=== PATIENT | male | born 1950 | race Caucasian/White ===

== ENCOUNTER 2023-09-22 12:59 | Inpatient (IN) | payer OTHER ==
[2023-09-22 13:26] LABS: Absolute Lymphocytes (CBC) 1.4 K/uL (0.7-4.9); Lymphocytes % 16.1 % (15.3-44.8); MPV 8.4 fL (7.6-11.3); Platelets 205 thou/uL (152-406)
--- NOTE | 2023-09-22 13:31 | RAD REPORT ---
EXAM DESCRIPTION: CT - Head Brain Wo Cont - 09/22/2023 1:20 pm CLINICAL HISTORY: SYNCOPE Headache, drowsiness, syncope COMPARISON: No comparisons TECHNIQUE: All CT scans are performed using dose optimization technique as appropriate and may inclu de automated exposure control or mA/KV adjustment according to patient size. FINDINGS: No intracranial hemorrhage, hydrocephalus or extra-axial fluid collection.Moderate general ized brain atrophy.No areas of brain edema or evidence of midline shift. The paranasal sinuses and mastoids are clear. The calvarium is intact. IMPRESSION: No acute intracranial abnormality.
[2023-09-22 13:36] LABS: Protime INR 0.97
[2023-09-22 13:46] LABS: Albumin 3.9 g/dL (3.4-5.0); Bilirubin Direct 0.3 mg/dL (0-0.2); Bilirubin Indirect, Calculated 0.7 mg/dL (0.2-0.8); Magnesium 2.4 mg/dL (1.6-2.4); Potassium 3.4 mEq/L (3.5-5.1); Protein, Total 8.1 g/dL (6.4-8.2); Troponin High Sensitivity 19.3 pg/mL (<58.9)
--- NOTE | 2023-09-22 14:06 | RAD REPORT ---
EXAM DESCRIPTION: RAD - Chest Single View - 09/22/2023 1:54 pm CLINICAL HISTORY: syncope Chest pain. COMPARISON: <Comparisons> FINDINGS: Portable technique limits examination quality. The lungs are grossly clear. The heart is normal in size. Multi lead pacer/defibrillator device prese nt.There is a nonspecific area of sclerosis noted in the posterior right sixth rib. IMPRESSION: No acute intrathoracic process suspected. Nonspecific area of sclerosis seen posterior right sixth rib. The significance of this finding is unc lear. Followup nuclear medicine bone scan would be advised on a nonemergent basis.
--- NOTE | 2023-09-22 14:22 | EDPHYS ---
Physician Documentation [facility] Name: Ángel Gracia Age: 73 yrs Sex: Male : 1950 Arrival Date: 09/22/2023 Time: 12:59 Bed 13 Private MD: ED Physician Jt Jacome HPI: 09/22 14:10 This 73 yrs old Male presents to ER via EMS with complaints of syncope. sp3 14:10 73-year-old male with a history of atrial fibrillation paroxysmal, prostate cancer, now sp3 [facility] that occurred yesterday as well as today. Patient yesterday was taking a shower when he had a full syncopal episode. He was orthostatic at clinic yesterday as well. He is on a "fluid pill" and states that he has not happy with the way it makes him feel. He denies any other symptoms including headache, chest pain, shortness of breath, abdominal pain, vomiting, diarrhea, rash, bleeding, or any other signs or symptoms on ROS at this time. He states he had no significant trauma from the syncope in the shower or earlier today. No prior history of renal pathology.. Historical: - Allergies: 13:07 Sulfa (Sulfonamide Antibiotics); mb9 - Home Meds: 13:07 abiraterone 250 mg oral tablet [Active]; aspirin 325 mg Oral tablet [Active]; Calcium mb9 Citrate Oral [Active]; Lasix 40 mg Oral tablet [Active]; methocarbamol 750 mg Oral tablet [Active]; metoprolol tartrate 25 mg Oral tablet [Active]; simvastatin 40 mg Oral tablet [Active]; Flomax 0.4 mg Oral capsule [Active]; - PMHx: 13:07 Malignant neoplasm of prostate; Depressive disorder; Arthritis; BPH; Atrial mb9 fibrillation; Paroxysmal Ventricular Tachycardia; hyperlipidemia; - PSHx: 13:07 Heart catheterization; Pacemaker; mb9 - Immunization history:: Adult Immunizations up to date. - Social history:: Smoking status: Patient denies any tobacco usage or history of. Patient/guardian denies using alcohol. ROS: 14:11 Constitutional: Negative for fever, chills, and weight loss, Eyes: Negative for injury, sp3 pain, redness, and discharge, ENT: Negative for injury, pain, and discharge, Neck: Negative for injury, pain, and swelling, Respiratory: Negative for shortness of breath, cough, wheezing, and pleuritic chest pain, Abdomen/GI: Negative for abdominal pain, nausea, vomiting, diarrhea, and constipation, Back: Negative for injury and pain, MS/Extremity: Negative for injury and deformity, Skin: Negative for injury, rash, and discoloration, Psych: Negative for depression, anxiety, suicide ideation, homicidal ideation, and hallucinations, Allergy/Immunology: Negative for hives, rash, and allergies, Endocrine: Negative for neck swelling, polydipsia, polyuria, polyphagia, and marked weight changes, 14:11 All other systems are negative, Exam: 14:11 Constitutional: This is a well developed, well nourished patient who is awake, alert, sp3 and in no acute distress. Head/Face: Normocephalic, atraumatic. Eyes: Pupils equal round and reactive to light, extra-ocular motions intact. Lids and lashes normal. Conjunctiva and sclera are non-icteric and not injected. Cornea within normal limits. Periorbital areas with no swelling, redness, or edema. ENT: Nares patent. No nasal discharge, no septal abnormalities noted. External auditory canals are clear. Oropharynx with no redness, swelling, or masses, exudates, or evidence of obstruction, uvula midline. Mucous membranes moist. Neck: Trachea midline, no thyromegaly or masses palpated, and no cervical lymphadenopathy. Supple, full range of motion without nuchal rigidity, or vertebral point tenderness. No Meningismus. Chest/axilla: Normal chest wall appearance and motion. Nontender with no deformity. No lesions are appreciated. Cardiovascular: Regular rate and rhythm with a normal S1 and S2. No gallops, murmurs, or rubs. Normal PMI, no JVD. No pulse deficits. Respiratory: Lungs have equal breath sounds bilaterally, clear to auscultation and percussion. No rales, rhonchi or wheezes noted. No increased work of breathing, no retractions or nasal flaring. Abdomen/GI: Soft, non-tender, with normal bowel sounds. No distension or tympany. No guarding or rebound. No evidence of tenderness throughout. Back: No spinal tenderness. No costovertebral tenderness. Full range of motion. Skin: Warm, dry with normal turgor. Normal color with no rashes, no lesions, and no evidence of cellulitis. MS/ Extremity: Pulses equal, no cyanosis. Neurovascular intact. Full, normal range of motion. Neuro: Awake and alert, GCS 15, oriented to person, place, time, and situation. Cranial nerves II-XII grossly intact. Motor strength 5/5 in all extremities. Sensory grossly intact. Cerebellar exam normal. Normal gait. Psych: Awake, alert, with orientation to person, place and time. Behavior, mood, and affect are within normal limits. 14:11 ECG was reviewed by the Attending Physician. EKG demonstrates normal sinus rhythm at 70 bpm with normal intervals except QTc of 502, normal QRS, normal axis, nonspecific diffuse ST/T changes without evidence of acute ischemia. Vital Signs: 13:05 BP 172 / 83; Pulse 73; Resp 18; Temp 98; Pulse Ox 97% on R/A; Weight 76.2 kg; Height 6 mb9 ft. 3 in. ; Pain 0/10; 15:58 BP 133 / 92; Pulse 69; Resp 18; Pulse Ox 99% on R/A; ld1 13:05 Body Mass Index 21.00 (76.20 kg, 190.5 cm) mb9 13:05 Pain Scale: Adult mb9 MDM: 13:05 Patient medically screened. sp3 14:12 Data reviewed: vital signs, nurses notes, lab test result(s), EKG, radiologic studies. sp3 ED course: CT scan of the head and x-ray of the chest are normal. Laboratory values demonstrate elevated creatinine and acute renal failure which is new for this patient. Given 2 episodes of syncope on 2 different days, we will place patient in knobs and have nephrology assess patient and potential change in medications.. 09/22 13:06 Order name: Basic Metabolic Panel; Complete Time: 13:56 sp3 09/22 13:06 Order name: CBC with Diff; Complete Time: 13:56 sp3 09/22 13:06 Order name: Hepatic Function; Complete Time: 13:56 sp3 09/22 13:06 Order name: Magnesium; Complete Time: 13:56 sp3 09/22 13:06 Order name: Protime (+inr); Complete Time: 13:56 sp3 09/22 13:06 Order name: Ptt, Activated; Complete Time: 13:56 sp3 09/22 13:06 Order name: Troponin High Sensitivity; Complete Time: 13:56 sp3 09/22 15:13 Order name: NT PRO-BNP EDMS 09/22 15:13 Order name: T4 Free EDMS 09/22 15:13 Order name: Thyroid Stimulating Hormone EDMS 09/22 15:13 Order name: Urinalysis w/ reflexes EDMS 09/22 15:13 Order name: Basic Metabolic Panel EDMS 09/22 15:13 Order name: Basic Metabolic Panel EDMS 09/22 15:13 Order name: Basic Metabolic Panel EDMS 09/22 15:13 Order name: Basic Metabolic Panel EDMS 09/22 15:13 Order name: CBC with Automated Diff EDMS 09/22 15:13 Order name: CBC with Automated Diff EDMS 09/22 15:13 Order name: CBC with Automated Diff EDMS 09/22 15:13 Order name: CBC with Automated Diff EDMS 09/22 15:13 Order name: Lipid Profile EDMS 09/22 15:13 Order name: Lipid Profile EDMS 09/22 15:13 Order name: Magnesium EDMS 09/22 15:13 Order name: Magnesium EDMS 09/22 15:13 Order name: Magnesium EDMS 09/22 15:13 Order name: Magnesium EDMS 09/22 15:13 Order name: Phosphorus EDMS 09/22 15:13 Order name: Phosphorus EDMS 09/22 15:13 Order name: Phosphorus EDMS 09/22 15:13 Order name: Phosphorus EDMS 09/22 13:06 Order name: CT Head Brain wo Cont; Complete Time: 13:56 sp3 09/22 13:06 Order name: Chest Single View XRAY; Complete Time: 14:09 sp3 09/22 13:06 Order name: EKG; Complete Time: 13:07 sp3 09/22 15:08 Order name: CONS Physician Consult EDMS 09/22 15:08 Order name: CONS Physician Consult EDMS 09/22 13:06 Order name: Cardiac monitoring; Complete Time: 13:10 sp3 09/22 13:06 Order name: EKG - Nurse/Tech; Complete Time: 13:10 sp3 09/22 13:06 Order name: IV Saline Lock; Complete Time: 13:19 sp3 09/22 13:06 Order name: Labs collected and sent; Complete Time: 13:19 sp3 09/22 13:06 Order name: NPO; Complete Time: 13:10 sp3 09/22 13:06 Order name: O2 Sat Monitoring; Complete Time: 13:10 sp3 Administered Medications: 15:14 CANCELLED (Duplicate Order; Error): [id number] mg PO once sp3 Disposition Summary: 09/22/23 14:21 Hospitalization Ordered Notes: Hospitalization Status: Inpatient Admission sp3 Provider: Ramandeep Zapien sp3 Condition: Stable sp3 Problem: new sp3 Symptoms: are unchanged sp3 Bed/Room Type: Standard sp3 Location: Telemetry/MedSurg (Inpatient)(09/23/23 01:07) Room Assignment: 214(09/23/23 01:07) Diagnosis - Syncope, acute kidney injury sp3 Forms: - Medication Reconciliation Form sp3 - SBAR form sp3 - Leadership Thank You Letter sp3 Signatures: Dispatcher [employer] EDDanita Hatch RN RN kl Leal, Jahala, RN RN jl7 Yesenia Godwin RN RN ld1 Jt Jacome MD MD sp3 Gita Jones RN RN mb9 Corrections: (The following items were deleted from the chart) 15:14 15:14 Sotalol PO 80 mg PO once ordered. sp3 sp3 16:00 14:21 Telemetry/MedSurg (Inpatient) sp3 jl7 16:00 14:21 sp3 jl7 09/23 01:07 09/22 16:00 [facility] ER HOLD jl7 kl 09/23 01:07 09/22 16:00 ERHOLD- jl7 kl
--- NOTE | 2023-09-22 14:22 | ER ---
Nurse's Notes [facility] Name: Ángel Gracia Age: 73 yrs Sex: Male : 1950 Arrival Date: 09/22/2023 Time: 12:59 Bed 13 Private MD: Diagnosis: Syncope, acute kidney injury Presentation: 09/22 13:05 Chief complaint: EMS states: "toned out for syncope yesterday that occurred yesterday mb9 while getting in shower. Pt did not hit head or LOC. Pt has been dizzy for 3 days ever since starting Lasix for fluid around heart.". Coronavirus screen: Vaccine status: Patient reports receiving the 2nd dose of the covid vaccine. Ebola Screen: No symptoms or risks identified at this time. Initial Sepsis Screen: Does the patient meet any 2 criteria? No. Patient's initial sepsis screen is negative. Does the patient have a suspected source of infection? No. Patient's initial sepsis screen is negative. Risk Assessment: Do you want to hurt yourself or someone else? Patient reports no desire to harm self or others. Onset of symptoms was September 22, 2023. 13:05 Method Of Arrival: EMS: [facility] mb9 13:05 Acuity: ASHLEE 3 mb9 Triage Assessment: 13:12 General: Appears in no apparent distress. Behavior is calm, cooperative. Pain: Denies mb9 pain. Neuro: Ngo Agitation-Sedation Scale (RASS): 0 - Alert and Calm Level of Consciousness is awake, alert, obeys commands, Oriented to person, place, time, situation, Appropriate for age Reports dizziness. Cardiovascular: Patient's skin is warm and dry. Respiratory: Airway is patent Respiratory effort is even, unlabored, Respiratory pattern is regular, symmetrical. GI: Abdomen is flat, non-distended, Abd is soft and non tender X 4 quads. : No signs and/or symptoms were reported regarding the genitourinary system. Derm: Skin is pink, warm \\T\\ dry. Historical: - Allergies: 13:07 Sulfa (Sulfonamide Antibiotics); mb9 - Home Meds: 13:07 abiraterone 250 mg oral tablet [Active]; aspirin 325 mg Oral tablet [Active]; Calcium mb9 Citrate Oral [Active]; Lasix 40 mg Oral tablet [Active]; methocarbamol 750 mg Oral tablet [Active]; metoprolol tartrate 25 mg Oral tablet [Active]; simvastatin 40 mg Oral tablet [Active]; Flomax 0.4 mg Oral capsule [Active]; - PMHx: 13:07 Malignant neoplasm of prostate; Depressive disorder; Arthritis; BPH; Atrial mb9 fibrillation; Paroxysmal Ventricular Tachycardia; hyperlipidemia; - PSHx: 13:07 Heart catheterization; Pacemaker; mb9 - Immunization history:: Adult Immunizations up to date. - Social history:: Smoking status: Patient denies any tobacco usage or history of. Patient/guardian denies using alcohol. Screenin:19 [facility] ED Fall Risk Assessment (Adult) History of falling in the last 3 months, ld1 including since admission Yes- single mechanical fall (1 pt). Abuse screen: Denies threats or abuse. Denies injuries from another. Nutritional screening: No deficits noted. Tuberculosis screening: No symptoms or risk factors identified. Assessment: 13:19 General: Appears in no apparent distress. comfortable, Behavior is calm, cooperative, ld1 appropriate for age. Pain: Denies pain. Neuro: Level of Consciousness is awake, alert, obeys commands, Oriented to person, place, time, situation. Neuro: Reports dizziness. Cardiovascular: Capillary refill < 3 seconds Patient's skin is warm and dry. Rhythm is sinus rhythm. Respiratory: Airway is patent Respiratory effort is even, unlabored. GI: Abdomen is flat, non-distended. : No signs and/or symptoms were reported regarding the genitourinary system. EENT: No signs and/or symptoms were reported regarding the EENT system. Derm: No signs and/or symptoms reported regarding the dermatologic system. Musculoskeletal: No signs and/or symptoms reported regarding the musculoskeletal system. 09/23 01:38 General: attempted to call report, no answer. jw7 02:23 General: Report given to SELIN Kitchen. jw7 Vital Signs: 09/22 13:05 BP 172 / 83; Pulse 73; Resp 18; Temp 98; Pulse Ox 97% on R/A; Weight 76.2 kg; Height 6 mb9 ft. 3 in. ; Pain 0/10; 15:58 BP 133 / 92; Pulse 69; Resp 18; Pulse Ox 99% on R/A; ld1 13:05 Body Mass Index 21.00 (76.20 kg, 190.5 cm) mb9 13:05 Pain Scale: Adult mb9 ED Course: 13:05 Patient arrived in ED. mb9 13:05 Jt Jacome MD is Attending Physician. sp3 13:07 Triage completed. mb9 13:07 Arm band placed on. mb9 13:10 Yesenia Godwin, RN is Primary Nurse. ld1 13:19 Patient has correct armband on for positive identification. Placed in gown. Bed in low ld1 position. Call light in reach. Side rails up X2. director energy on. Pulse ox on. NIBP on. Door closed. Noise minimized. Warm blanket given. 13:19 Inserted saline lock: 20 gauge in right upper arm, using aseptic technique. Blood ld1 collected. 13:19 No provider procedures requiring assistance completed. ld1 13:22 CT Head Brain wo Cont In Process Unspecified. EDMS 13:55 Chest Single View XRAY In Process Unspecified. EDMS 14:20 Ramandeep Zapien MD is Hospitalizing Provider. sp3 18:01 Patient admitted, IV remains in place. ld1 19:00 Provided Education on: need for admit. jw7 Administered Medications: 15:14 CANCELLED (Duplicate Order; Error): mg PO once sp3 Medication: 18:01 VIS not applicable for this client. ld1 Outcome: 14:21 Decision to Hospitalize by Provider. sp3 18:01 Admitted to ER Hold. Please see [facility] for further documentation. ld1 18:01 Condition: stable 18:01 Instructed on the need for admit, 12/ 02:43 Patient left the ED. jw7 Signatures: Dispatcher [employer] EDMS Yesenia Godwin, RN RN ld1 Jt Jacome MD MD sp3 Maeve Lawson RN RN jw7 Gita Jones RN RN mb9
[2023-09-22] MEDS ORDERED: ACETAMINOPHEN 500 MG TAB PO PRN (15:06)
[2023-09-22] MEDS ORDERED: MAGNESIUM HYDROXIDE 8% 30 ML PO PRN (15:06)
[2023-09-22] MEDS ORDERED: ALBUTEROL 2.5 MG/3 ML NEB SOL NEB PRN (15:06)
--- NOTE | 2023-09-22 15:17 | P.HP ---
Certification for Inpatient With expected LOS: <2 Midnights Patient will require the following post-hospital care: None Practitioner: I am a practitioner with admitting privileges, knowledge of patient current condition, hospital course, and medical plan of care. Services: Services provided to patient in accordance with Admission requirements found in Title 42 Section 412.3 of the Code of Federal Regulations <Laura Fragoso - Last Filed: 09/22/23 17:20> Patient History Date of Service: 09/22/23 Reason for admission: Syncope, acute kidney injury History of Present Illness: , a 73-year-old male with a primary history of malignant neoplasm of prostrate, depression, arthritis, BPH, atrial fibrillation, hyperlipidemia, hypertension. Presented to the emergency room with the complaints of syncope. Patient reports that he had a full syncopal episode while taking a shower yesterday. Patient was seen in the [place] [facility] where he was orthostatic. This dizziness happened again today. Patient reports that he was started on fluid pill recently. Patient denies chest pain, shortness of breath, abdominal pain, nausea, vomiting, bleeding. Patient reports ongoing cough and dyspnea on exertion since beginning of July 2023. Patient is ex-smoker quit smoking 2 years ago. Patient states that he had no significant trauma from the syncopal episode yesterday or today. ED course Vital signs blood pressure 172/83, pulse 73, respiration 18, temperature 98, pulse ox 97% on room air. EKG showing normal sinus rhythm CT scan of head and x-ray of the chest are normal. Laboratory reports demonstrates elevated BUN 46, creatinine 2.78, low GFR 23 which is new for this patient. Admitting the patient for syncope and acute kidney injury. - Past Medical/Surgical History Has patient received pneumonia vaccine in the past: Yes Diabetic: No -: Malignant neoplasm of prostrate -: Arthritis -: Depression -: Atrial fibrillation -: Hyperlipidemia -: Hypertension -: Pacemaker/AICD -: Heart catheterization -: Pacemaker Psychosocial/ Personal History: Lives at home - Social History Smoking Status: Former smoker Alcohol use: Yes CD- Drugs: Yes Caffeine use: Yes Place of Residence: Home <Laura Fragoso - Last Filed: 09/22/23 17:20> Date of Service: 09/22/23 <Ramandeep Zapien - Last Filed: 09/22/23 17:43> Review of Systems 10-point ROS is otherwise unremarkable <Laura Fragoso - Last Filed: 09/22/23 17:20> Physical Examination - Physical Exam General: Alert, In no apparent distress, Oriented x3 HEENT: Atraumatic, Normocephalic Neck: Supple, 2+ carotid pulse no bruit Respiratory: Inspiratory wheezes, Rhonchi/gurgles, Other (Short of breath with mild exertion) Cardiovascular: No edema, Irregular heart rate/rhythm Capillary refill: <2 Seconds Gastrointestinal: Normal bowel sounds, Soft and benign Musculoskeletal: No clubbing, No swelling Integumentary: Rash(es), Other (Multiple echo hematic spots on both arms neck and face) Neurological: Normal speech, Normal affect - Studies Laboratory Data (last 24 hrs) 09/22/23 09/22/23 09/22/23 13:19 13:19 13:16 WBC 8.70 Hgb 12.7 L Hct 37.0 L Plt Count 205 PT 10.7 INR 0.97 APTT 27.7 Sodium 132 L Potassium 3.4 L BUN 46 H Creatinine 2.78 H Glucose 102 Magnesium 2.4 Total Bilirubin 1.0 AST 20 ALT 18 Alkaline Phosphatase 81 <Laura Fragoso - Last Filed: 09/22/23 17:20> - Studies Laboratory Data (last 24 hrs) 09/22/23 09/22/23 09/22/23 13:19 13:19 13:16 WBC 8.70 Hgb 12.7 L Hct 37.0 L Plt Count 205 PT 10.7 INR 0.97 APTT 27.7 Sodium 132 L Potassium 3.4 L BUN 46 H Creatinine 2.78 H Glucose 102 Magnesium 2.4 Total Bilirubin 1.0 AST 20 ALT 18 Alkaline Phosphatase 81 <Ramandeep Zapien - Last Filed: 09/22/23 17:43> Assessment and Plan - Problems (Diagnosis) (1) Syncope Current Visit: Yes Status: Acute Qualifiers: Syncope type: unspecified Qualified Code(s): R55 - Syncope and collapse (2) Acute kidney injury Current Visit: Yes Status: Acute (3) History of malignant neoplasm of prostate Current Visit: Yes Status: Chronic (4) BPH (benign prostatic hyperplasia) Current Visit: Yes Status: Chronic Qualifiers: Lower urinary tract symptom presence: symptoms present (5) Depression Current Visit: Yes Status: Chronic Qualifiers: Depression Type: unspecified Qualified Code(s): F32.A - Depression, unspecified (6) Atrial fibrillation Current Visit: Yes Status: Chronic Qualifiers: Atrial fibrillation type: unspecified chronic Qualified Code(s): I48.20 - Chronic atrial fibrillation, unspecified; I48.2 - Chronic atrial fibrillation (7) Hyperlipidemia Current Visit: Yes Status: Chronic Qualifiers: Hyperlipidemia type: moderate mixed hyperlipidemia not requiring statin therapy Qualified Code(s): E78.2 - Mixed hyperlipidemia (8) Hypertension Current Visit: Yes Status: Chronic Qualifiers: Hypertension type: primary hypertension Qualified Code(s): I10 - Essential (primary) hypertension - Plan * Patient had 2 syncopal episodes on 09/21/23 and 09/22/23, no trauma * Patient reports that he was started on new diuretics and the spisodes of dizziness started since then. * Acute Kidney Injury-elevated BUN 46, creatinine 2.78, low GFR 23 which is new for this patient. Reports poor hydration, starting IV hydration, nephrology consult, Stop lasix at this time * HTN- continue to monitor closely and resume home meds * Echo ordered * Ex-smoker for many years. with increasing cough episodes since 07/2023 after COVID infection,SOB with mild exertion. Bilateral air entry course- Bronchodilators ordered, Pulmonology Dr. Flanagan consulted. * Diet- Cardiac, renal * DVT prophylaxis- Heparin * Code Status-Full code . Discharge Plan: Home Plan to discharge in: 48 Hours - Advance Directives Does patient have a Living Will: No Does patient have a Durable POA for Healthcare: No - Code Status/Comfort Care Code Status Assessed: Yes (full code) Code Status: Full Code Physician Review: Patient Assessed, Agree with Above Assessment and Plan Critical Care: No Time Spent Managing Pts Care (In Minutes): 55 (minutes) <Laura Fragoso - Last Filed: 09/22/23 17:20> Physician Review: Patient Assessed, Agree with Above Assessment and Plan (Pt seen and examined. I agree with the note by the LONG DISTANCE BILLING OPERATOR. Pt is a had syncope while taking a shower but he did not hit his head. Of note, he recently started lasix. On admission, lab studies show elevated Cr 2.78, calcium 12.6. k 3.4 and Na 132. At bedside, pt is in NAD. He denies syncope when sitting) Physician Review Additional Text: Pt seen and examined. I agree with the note by the LONG DISTANCE BILLING OPERATOR. Pt is a 73 yo male with pmh of malignant prostatic cancer and other medical problems who presents with syncope. Pt reports that he recently started lasix. On admission, lab studies show Cr 2.78, NA 132 and k 3.4. At bedside pt is in NAD. A/P; Will hold lasix. Followup Orthostatic vital signs, Continue IVF and follow Echo. Calcium is 12.6. Likely due to prostate cancer. Will continue IVF and monitor Calcium level. KIM: Continue IVF and avoid nephrotoxins.Will follow renal ultrasound. Will replete Potassium and Na DVT ppx: SCD <Ramandeep Zapien - Last Filed: 09/22/23 17:43>
[2023-09-22] MEDS: NA CHLORIDE 0.9% 1,000 ML IV SCH (16:00)
[2023-09-22] MEDS: HEPARIN 5000 UNIT/ML 1 ML VIAL SQ SCH (17:00)
[2023-09-22] MEDS ORDERED: NA CHLORIDE 0.9% 1,000 ML ONE (17:57)
[2023-09-22] MEDS ORDERED: HEPARIN 5000 UNIT/ML 1 ML VIAL ONE (17:57)
[2023-09-22] MEDS: IPRATROPIUM BROM 0.5MG/2.5ML NEB SCH (19:30)
[2023-09-22] MEDS: ALBUTEROL 2.5 MG/3 ML NEB SOL NEB SCH (19:30)
[2023-09-22] MEDS ORDERED: IPRATROPIUM BROM 0.5MG/2.5ML ONE (19:42)
[2023-09-22] MEDS ORDERED: ALBUTEROL 2.5 MG/3 ML NEB SOL ONE (19:44)
[2023-09-22] MEDS ORDERED: ACETAMINOPHEN 500 MG TAB ONE (20:42)
[2023-09-23] MEDS: IPRATROPIUM BROM 0.5MG/2.5ML NEB SCH ×4 (01:45→20:29)
[2023-09-23] MEDS: HEPARIN 5000 UNIT/ML 1 ML VIAL SQ SCH ×3 (01:45→16:41)
[2023-09-23] MEDS: ALBUTEROL 2.5 MG/3 ML NEB SOL NEB SCH ×4 (01:47→20:29)
[2023-09-23] MEDS ORDERED: HEPARIN 5000 UNIT/ML 1 ML VIAL ONE (02:05)
[2023-09-23 04:01] LABS: Absolute Lymphocytes (CBC) 3.2 K/uL (0.7-4.9); Hematocrit 33.1 % (39.6-49.0); Lymphocytes % 36.9 % (15.3-44.8); MCV 94.3 fL (80-100); MPV 8.9 fL (7.6-11.3); Platelets 173 thou/uL (152-406); RBC Red Blood Cell Count 3.51 M/uL (4.33-5.43)
[2023-09-23 04:25] LABS: Magnesium 2.4 mg/dL (1.6-2.4); Potassium 3.4 mEq/L (3.5-5.1)
[2023-09-23 04:35] LABS: Thyroid Stimulating Hormone 1.7 uIU/mL (0.358-3.740)
[2023-09-23] MEDS: NA CHLORIDE 0.9% 1,000 ML IV SCH ×2 (06:19→18:00)
[2023-09-23] MEDS ORDERED: POTASSIUM CL SA 10 MEQ TAB PO ONE (07:04)
[2023-09-23] MEDS: POTASSIUM CL SA 10 MEQ TAB PO SCH ×2 (08:00→12:00)
[2023-09-23 09:21] LABS: Specific Gravity 1.015 (1.005-1.030); Urine Bilirubin NEGATIVE (Negative); Urine Blood Negative (Negative); Urine Clarity Clear (Clear); Urine Color Light-Yellow (Yellow); Urine Glucose NEGATIVE (Negative); Urine Protein NEGATIVE (Negative); Urine Urobilinogen Normal (Normal); Urine pH 5.5 (5.0-7.0)
--- NOTE | 2023-09-23 09:40 | P.PN ---
Subjective Date of Service: 09/23/23 Chief Complaint: Syncope, acute kidney injury Subjective: No new changes, Improving Patient is alert oriented x3 Any pain or discomfort Vital signs stable, blood pressure improving Denies shortness of breath, Review of Systems 10-point ROS is otherwise unremarkable Physical Examination - Vital Signs Temperature: 98 F Blood Pressure: 133/92 Pulse: 69 Respirations: 18 Pulse Ox (%): 97 - Physical Exam General: Alert, Oriented x3 HEENT: Atraumatic, Normocephalic Neck: Supple, 2+ carotid pulse no bruit Respiratory: Clear to auscultation bilaterally, Normal air movement Cardiovascular: No edema, Normal pulses Capillary refill: <2 Seconds Gastrointestinal: Normal bowel sounds, Soft and benign Musculoskeletal: No clubbing, No swelling Integumentary: No rashes, No breakdown, Arterial ulcer (Multiple echo echymotic spots on the arms, face and the neck) Neurological: Normal speech, Normal tone, Normal affect - Studies Laboratory Data (last 24 hrs) 09/22/23 09/22/23 09/22/23 13:19 13:19 13:16 WBC 8.70 Hgb 12.7 L Hct 37.0 L Plt Count 205 PT 10.7 INR 0.97 APTT 27.7 Sodium 132 L Potassium 3.4 L BUN 46 H Creatinine 2.78 H Glucose 102 Magnesium 2.4 Total Bilirubin 1.0 AST 20 ALT 18 Alkaline Phosphatase 81 Assessment And Plan - Current Problems (Diagnosis) (1) Syncope Current Visit: Yes Status: Acute Qualifiers: Syncope type: unspecified Qualified Code(s): R55 - Syncope and collapse (2) Acute kidney injury Current Visit: Yes Status: Acute (3) History of malignant neoplasm of prostate Current Visit: Yes Status: Chronic (4) BPH (benign prostatic hyperplasia) Current Visit: Yes Status: Chronic Qualifiers: Lower urinary tract symptom presence: symptoms present (5) Depression Current Visit: Yes Status: Chronic Qualifiers: Depression Type: unspecified Qualified Code(s): F32.A - Depression, unspecified (6) Atrial fibrillation Current Visit: Yes Status: Chronic Qualifiers: Atrial fibrillation type: unspecified chronic Qualified Code(s): I48.20 - Chronic atrial fibrillation, unspecified; I48.2 - Chronic atrial fibrillation (7) Hyperlipidemia Current Visit: Yes Status: Chronic Qualifiers: Hyperlipidemia type: moderate mixed hyperlipidemia not requiring statin therapy Qualified Code(s): E78.2 - Mixed hyperlipidemia (8) Hypertension Current Visit: Yes Status: Chronic Qualifiers: Hypertension type: primary hypertension Qualified Code(s): I10 - Essential (primary) hypertension - Plan * Patient had 2 syncopal episodes on 09/21/23 and 09/22/23, no trauma * Patient reports that he was started on new diuretics and the episodes of dizziness started since then. * Acute Kidney Injury-elevated BUN 51, creatinine 2.64, low GFR 24 which is new for this patient. Reports poor hydration, starting IV hydration, nephrology consult, Stop lasix at this time.KIM: Continue IVF and avoid nephrotoxins.Will follow renal ultrasound. * Will replete Potassium and Na * HTN- continue to monitor closely and resume home meds * Echo ordered * Ex-smoker for many years. with increasing cough episodes since 07/2023 after COVID infection,SOB with mild exertion. Bilateral air entry course- Bronchodilators ordered, Pulmonology Dr. Flanagan consulted. * Will hold lasix. Followup Orthostatic vital signs, Continue IVF and follow Echo. * Calcium is 12.6. Likely due to prostate cancer. Will continue IVF and monitor Calcium level. * DVT ppx: SCD * Diet- Cardiac, renal * DVT prophylaxis- Heparin * Code Status-Full code . Discharge Plan: Home Plan to discharge in: 24 Hours - Code Status/Comfort Care Code Status Assessed: Yes (Full code) Code Status: Full Code Physician Review: Patient Assessed, Agree with Above Assessment and Plan (Pt seen and examined. I agree with the note by the BUSINESS ANALYSIS CONSULTANT. Pt is a had syncope while taking a shower but he did not hit his head. Of note, he recently started lasix. On admission, lab studies show elevated Cr 2.78, calcium 12.6. k 3.4 and Na 132. At bedside, pt is in NAD. He denies syncope when sitting) Critical Care: Yes Time Spent Managing PTS Care (In Minutes): 35 (Minutes)
[2023-09-23] MEDS: predniSONE 20 MG TAB PO SCH ×2 (10:08→20:08)
[2023-09-23] MEDS: DULERA 200/5 (MOMETASONE/FORMOTEROL) INHALER IH SCH ×2 (10:08→20:08)
--- NOTE | 2023-09-23 12:19 | P.CNS ---
Date of Consult: 09/23/23 Reason for Consult: Cough shortness of breath possible COPD Chief Complaint: Syncope with cough and shortness of breath History of Present Illness: Patient is 73 years of age waning of shortness of breath and cough since August 20 has become progressive former smoker with a history of prostatic cancer history of COVID 2 years ago admitted with a syncopal attack Allergies Sulfa (Sulfonamide Antibiotics) Allergy (Verified 09/22/23 17:40) Hives/Rash Home Medications: Abiraterone Acetate 250 mg PO DAILY 09/22/23 Aspirin [Aspirin EC 325 MG] 325 mg PO DAILY 09/22/23 Calcium Citrate 200 mg PO DAILY 09/22/23 Furosemide [Lasix Oral Shanita] 40 mg PO DAILY 09/22/23 Metoprolol Tartrate [Lopressor] 25 mg PO DAILY 09/22/23 Simvastatin 40 mg PO DAILY 09/22/23 Tamsulosin [Flomax*] 0.4 mg PO DAILY 09/22/23 methocarbamoL [Methocarbamol] 750 mg PO DAILY 09/22/23 - Past Medical/Surgical History Diabetic: No -: Malignant neoplasm of prostrate -: Arthritis -: Depression -: Atrial fibrillation -: Hyperlipidemia -: Hypertension -: Pacemaker/AICD -: Heart catheterization -: Pacemaker Psychosocial/ Personal History: Lives at home - Social History Alcohol use: Yes CD- Drugs: Yes Caffeine use: Yes Place of Residence: Home Review of Systems General: Weakness Respiratory: Cough, Shortness of Breath Physical Examination Temp Pulse Resp BP Pulse Ox 98 F 69 18 133/92 H 97 09/23/23 09:42 09/23/23 09:42 09/23/23 09:42 09/23/23 09:42 09/23/23 09:42 General: Alert, In no apparent distress, Oriented x3 Respiratory: Clear to auscultation bilaterally, Diminished Cardiovascular: No edema, Normal pulses Gastrointestinal: Normal bowel sounds Laboratory Data (last 24 hrs) 09/22/23 09/22/23 09/22/23 13:19 13:19 13:16 WBC 8.70 Hgb 12.7 L Hct 37.0 L Plt Count 205 PT 10.7 INR 0.97 APTT 27.7 Sodium 132 L Potassium 3.4 L BUN 46 H Creatinine 2.78 H Glucose 102 Magnesium 2.4 Total Bilirubin 1.0 AST 20 ALT 18 Alkaline Phosphatase 81 - Problems (1) COPD (chronic obstructive pulmonary disease) Current Visit: Yes Status: Acute Plan: Patient is 73 years of age admitted with a syncopal attack he has had chronic shortness of breath and a cough I suspect he has underlying obstructive airways disease is apparent from his chest x-ray in addition patient also has a right upper lobe opacity that needs to be followed up he has been followed up at the [facility] patient's white count in normal I suspect he has chronic renal failure currently normal sinus rhythm recommend adding bronchodilators and steroids repeat PA and lateral chest x-ray discharge planning patient will need outpatient pulmonary function testing he has been followed up at the [facility] Qualifiers: Emphysema type: unspecified
--- NOTE | 2023-09-23 13:29 | EKG ---
Test Date: 2023-09-22 Test Time: 13:08:05 Manager Heart Failure: Dilip TRUJILLO MEASUREMENT RESULTS: Intervals: Rate: 67 MD: 172 QRSD: 102 QT: 476 QTc: 502 [place]: P: 94 MD: 172 QRS: 87 T: 80 INTERPRETIVE STATEMENTS: Normal sinus rhythm Prolonged QT Abnormal ECG No previous ECG available for comparison Electronically Signed On 09-23-23 13:26:55 ELECTRIC CAR OPERATOR by Oscar Diaz
--- NOTE | 2023-09-23 14:57 | RAD REPORT ---
EXAM DESCRIPTION: Tavia Pa And Lat (2 Views)09/23/2023 2:41 pm CLINICAL HISTORY: Cough COMPARISON: 09/22/2023 FINDINGS: A vague area of sclerosis is again demonstrated right posterior 6 rib. Lungs are hyperaerated The lungs appear clear of acute infiltrate. The heart is normal size. Pacemaker leads in place IMPRESSION: COPD Vague area sclerosis right posterior sixth rib. Nuclear medicine bone scan may be helpful for further evaluation
--- NOTE | 2023-09-23 16:52 | P.CNS ---
Date of Consult: 09/23/23 Reason for Consult: KIM Requesting Physician: Ramandeep Zapien Chief Complaint: Syncope with cough and shortness of breath History of Present Illness: , a 73-year-old male with a primary history of malignant neoplasm of prostrate, depression, arthritis, BPH, atrial fibrillation, hyperlipidemia, hypertension. Presented to the emergency room with the complaints of syncope. Patient reports that he had a full syncopal episode while taking a shower yesterday. Patient was seen in the [facility] where he was orthostatic. This dizziness happened again today. Patient reports that he was started on fluid pill recently. Patient denies chest pain, shortness of breath, abdominal pain, nausea, vomiting, bleeding. Patient reports ongoing cough and dyspnea on exertion since beginning of July 2023. Patient is ex-smoker quit smoking 2 years ago. Patient states that he had no significant trauma from the syncopal episode yesterday or today. ED course Vital signs blood pressure 172/83, pulse 73, respiration 18, temperature 98, pulse ox 97% on room air. EKG showing normal sinus rhythm CT scan of head and x-ray of the chest are normal. Laboratory reports demonstrates elevated BUN 46, creatinine 2.78, low GFR 23 which is new for this patient. Admitting the patient for syncope and acute kidney injury. 14:10 This 73 yrs old Male presents to ER via EMS with complaints of syncope. sp3 14:10 73-year-old male with a history of atrial fibrillation paroxysmal, prostate cancer, now sp3 presents to the ED referred from the [facility] secondary to syncope that occurred yesterday as well as today. Patient yesterday was taking a shower when he had a full syncopal episode. He was orthostatic at clinic yesterday as well. He is on a "fluid pill" and states that he has not happy with the way it makes him feel. He denies any other symptoms including headache, chest pain, shortness of breath, abdominal pain, vomiting, diarrhea, rash, bleeding, or any other signs or symptoms on ROS at this time. He states he had no significant trauma from the syncope in the shower or earlier today. No prior history of renal pathology. He denies a history of CKD. He denies NSAIDs and uses tylenol for pain. He rep orts incomplete emptying of his bladder with a weak stream. Sometimes, he has to return to urinate at approximately 20min. He states that he had taken his third daily lasix on the day of his syncope. He was told by his provider at the [facility] to start taking lasix for cardiac congestion. Allergies Sulfa (Sulfonamide Antibiotics) Allergy (Verified 09/22/23 17:40) Hives/Rash Home medications list reviewed: Yes Home Medications: Abiraterone Acetate 250 mg PO DAILY 09/22/23 Aspirin [Aspirin EC 325 MG] 325 mg PO DAILY 09/22/23 Calcium Citrate 200 mg PO DAILY 09/22/23 Furosemide [Lasix Oral Shanita] 40 mg PO DAILY 09/22/23 Metoprolol Tartrate [Lopressor*] 25 mg PO DAILY 09/22/23 Simvastatin 40 mg PO DAILY 09/22/23 Tamsulosin [Flomax*] 0.4 mg PO DAILY 09/22/23 methocarbamoL [Methocarbamol] 750 mg PO DAILY 09/22/23 Albuterol Inhaler [Ventolin Inhaler*] 2 puff IH Q6H PRN 30 Days #1 aer 09/24/23 Mometasone/Formoterol [Dulera 200 Mcg/5 Mcg Inhaler] 2 puff IH BID 30 Days #1 inhaler 09/24/23 - Past Medical/Surgical History Diabetic: No -: Malignant neoplasm of prostrate -: Arthritis -: Depression -: Atrial fibrillation -: Hyperlipidemia -: Hypertension -: Pacemaker/AICD -: Hx KIM (Dr. Connors/ Dr. Woodruff) -: Heart catheterization -: Pacemaker Psychosocial/ Personal History: Lives at home - Social History Smoking Status: Former smoker Alcohol use: Yes CD- Drugs: Yes Caffeine use: Yes Place of Residence: Home Review of Systems 10-point ROS is otherwise unremarkable General: Weakness Physical Examination Temp Pulse Resp BP Pulse Ox 97.1 F 77 16 126/64 98 09/23/23 12:00 09/23/23 12:00 09/23/23 12:00 09/23/23 12:00 09/23/23 12:00 General: In no apparent distress, Oriented x3, Cooperative HEENT: Atraumatic Neck: Supple Respiratory: Clear to auscultation bilaterally Cardiovascular: No edema, Regular rate/rhythm Gastrointestinal: Soft and benign, Non-distended Musculoskeletal: No clubbing, No contractures Integumentary: No rashes, No cyanosis Neurological: Normal speech Blood work reviewed in the chart. Imagings Data: EXAM DESCRIPTION: Tavia Lorenz And Cortez (2 Views)09/23/2023 2:41 pm CLINICAL HISTORY: Cough COMPARISON: 09/22/2023 FINDINGS: A vague area of sclerosis is again demonstrated right posterior 6 rib. Lungs are hyperaerated The lungs appear clear of acute infiltrate. The heart is normal size. Pacemaker leads in place IMPRESSION: COPD Vague area sclerosis right posterior sixth rib. Nuclear medicine bone scan may be helpful for further evaluation EXAM DESCRIPTION: CT - Head Brain Wo Cont - 09/22/2023 1:20 pm CLINICAL HISTORY: SYNCOPE Headache, drowsiness, syncope COMPARISON: No comparisons TECHNIQUE: All CT scans are performed using dose optimization technique as appropriate and may include automated exposure control or mA/KV adjustment according to patient size. FINDINGS: No intracranial hemorrhage, hydrocephalus or extra-axial fluid collection.Moderate generalized brain atrophy.No areas of brain edema or evidence of midline shift. The paranasal sinuses and mastoids are clear. The calvarium is intact. IMPRESSION: No acute intracranial abnormality. EXAM DESCRIPTION: RAD - Chest Single View - 09/22/2023 1:54 pm CLINICAL HISTORY: syncope Chest pain. COMPARISON: <Comparisons> FINDINGS: Portable technique limits examination quality. The lungs are grossly clear. The heart is normal in size. Multi lead pacer/defibrillator device present.There is a nonspecific area of sclerosis noted in the posterior right sixth rib. IMPRESSION: No acute intrathoracic process suspected. Nonspecific area of sclerosis seen posterior right sixth rib. The significance of this finding is unclear. Followup nuclear medicine bone scan would be advised on a nonemergent basis. Conclusions/Impression: Stage III KIM may be due to hypovolemia Underlying CKD unclear at this time -No NSAIDs -Gentle IVF with NS -Renal US -Request [facility] Hyponatremia -Gentle IV with NS Hypokalemia -Replete as ordered Hypercalcemia -Hold calcium supplementation -Gentle IVF with NS HTN with CKD -Hold antihypertensives at this time Anemia in chronic illness -Monitor H&H Prostate Cancer Enlarged Prostate with LUTS -Restart tamsulosin -Bladder US Case reviewed with hospitalist team Thank you kindly for the consultation
[2023-09-23 17:14] VITALS: BMI 20.9
[2023-09-23] MEDS: TAMSULOSIN 0.4 MG SR CAP PO SCH (20:08)
[2023-09-24] MEDS: HEPARIN 5000 UNIT/ML 1 ML VIAL SQ SCH ×2 (00:22→09:00)
[2023-09-24 02:09] LABS: Absolute Lymphocytes (CBC) 0.7 K/uL (0.7-4.9); Hematocrit 30.2 % (39.6-49.0); Lymphocytes % 9.3 % (15.3-44.8); MCV 94.5 fL (80-100); MPV 8.6 fL (7.6-11.3); Platelets 165 thou/uL (152-406)
[2023-09-24 02:28] LABS: Magnesium 2.2 mg/dL (1.6-2.4); Phosphorus 2.5 mg/dL (2.5-4.9); Potassium 3.9 mEq/L (3.5-5.1); Uric Acid 6.2 mg/dL (3.5-7.2)
[2023-09-24] MEDS: IPRATROPIUM BROM 0.5MG/2.5ML NEB SCH ×3 (02:40→13:22)
[2023-09-24] MEDS: ALBUTEROL 2.5 MG/3 ML NEB SOL NEB SCH ×3 (02:40→13:22)
[2023-09-24 02:56] LABS: Blood Morphology Comment NOT SEEN (NOT SEEN); Platelet Estimate ADEQ
[2023-09-24] MEDS: NA CHLORIDE 0.9% 1,000 ML IV SCH ×2 (06:11→09:46)
--- NOTE | 2023-09-24 08:17 | RAD REPORT ---
EXAM DESCRIPTION: US - Renal Ultrasound-Complete - 09/23/2023 11:41 pm CLINICAL HISTORY: KIM COMPARISON: No comparisons TECHNIQUE: Sonographic grayscale and color flow images of the kidneys were obtained. FINDINGS: Both kidneys are normal in size, shape, and echotexture. The right kidney measures 8 cm in length. Exophytic right superior pole ovoid thin-walled cystic lesi on measuring 4.0 x 4.4 x 2.9 cm, with mild debris. No hydronephrosis, other suspicious focal mass, or echogenic calculi. The left kidney measures 10.3 cm in length. No hydronephrosis, or focal mass. Two echogenic calculi a re present, largest at the mid to lower pole measuring 5 millimeter, and a smaller 3 millimeter calcu juan at the upper pole. IMPRESSION: Well-circumscribed, possibly hemorrhagic, right upper renal pole 4.4 cm cystic lesion. Small left renal calculi up to 5 millimeter in size. No hydronephrosis or other parenchymal abnormalities.
--- NOTE | 2023-09-24 08:19 | RAD REPORT ---
EXAM DESCRIPTION: US - Urinary Bladder - 09/23/2023 11:41 pm CLINICAL HISTORY: KIM with urinary retention COMPARISON: No comparisons TECHNIQUE: Real-time sonographic evaluation of the urinary bladder with pre and postvoid volume beka urements was performed. FINDINGS: No focal wall masses or wall thickening. Mild trabeculation throughout the wall. Prevoid v olume: 110 mL. Ureteral jets were not visualized. No bladder calculi. Postvoid bladder volume: 62.09 mL. IMPRESSION: Moderate postvoid residual. Mild trabeculation throughout the bladder wall, may relate to a degree of longstanding outlet obstruc tion.
[2023-09-24] MEDS ORDERED: POTASSIUM CL SA 10 MEQ TAB PO ONE (09:00)
[2023-09-24] MEDS: DULERA 200/5 (MOMETASONE/FORMOTEROL) INHALER IH SCH (09:45)
[2023-09-24] MEDS: TAMSULOSIN 0.4 MG SR CAP PO SCH (09:47)
[2023-09-24] MEDS: predniSONE 20 MG TAB PO SCH (09:48)
--- NOTE | 2023-09-24 10:20 | P.PN ---
Subjective Date of Service: 09/24/23 Chief Complaint: Syncope with cough and shortness of breath Subjective: No new changes, No C/O voiced, Improving, Doing well Patient is alert oriented x3 Denies any pain or discomfort Ocasional cough, Denies SOB Vital signs stable, blood pressure improving Denies shortness of breath, <Laura Fragoso - Last Filed: 09/24/23 10:12> Date of Service: 09/24/23 <YoandyRamandeep vail Ruthann - Last Filed: 09/24/23 15:23> Review of Systems 10-point ROS is otherwise unremarkable <Laura Fragoso - Last Filed: 09/24/23 10:12> Physical Examination - Vital Signs Temperature: 96.0 F Blood Pressure: 143/81 Pulse: 88 Respirations: 16 Pulse Ox (%): 98 - Physical Exam General: Alert, In no apparent distress HEENT: Atraumatic, Normocephalic Neck: Supple, 2+ carotid pulse no bruit Respiratory: Clear to auscultation bilaterally, Normal air movement Cardiovascular: No edema, Normal pulses Capillary refill: <2 Seconds Gastrointestinal: Normal bowel sounds, Non-distended Musculoskeletal: No clubbing, No swelling Integumentary: No rashes, No breakdown Neurological: Normal gait, Normal speech <Laura Fragoso - Last Filed: 09/24/23 10:12> Assessment And Plan - Current Problems (Diagnosis) (1) Syncope Onset Date: ~09/23/23 Current Visit: Yes Status: Acute Qualifiers: Syncope type: unspecified Qualified Code(s): R55 - Syncope and collapse (2) Acute kidney injury Onset Date: ~09/23/23 Current Visit: Yes Status: Acute (3) History of malignant neoplasm of prostate Current Visit: Yes Status: Chronic (4) BPH (benign prostatic hyperplasia) Current Visit: Yes Status: Chronic Qualifiers: Lower urinary tract symptom presence: symptoms present (5) Depression Current Visit: Yes Status: Chronic Qualifiers: Depression Type: unspecified Qualified Code(s): F32.A - Depression, unspecified (6) Atrial fibrillation Current Visit: Yes Status: Chronic Qualifiers: Atrial fibrillation type: unspecified chronic Qualified Code(s): I48.20 - Chronic atrial fibrillation, unspecified; I48.2 - Chronic atrial fibrillation (7) Hyperlipidemia Current Visit: Yes Status: Chronic Qualifiers: Hyperlipidemia type: moderate mixed hyperlipidemia not requiring statin therapy Qualified Code(s): E78.2 - Mixed hyperlipidemia (8) Hypertension Current Visit: Yes Status: Chronic Qualifiers: Hypertension type: primary hypertension Qualified Code(s): I10 - Essential (primary) hypertension (9) Hyponatremia Current Visit: Yes Status: Acute (10) Hypokalemia Current Visit: Yes Status: Acute (11) Hypercalciuria Current Visit: Yes Status: Acute (12) Benign hypertension with CKD (chronic kidney disease) stage III Current Visit: Yes Status: Acute (13) Anemia due to stage 3 chronic kidney disease Current Visit: Yes Status: Acute - Plan syncopal episodes: - Improving, denies any dizziness or syncopal episodes since admission -Discussed importance of adequate hydration -Fall precaution Acute Kidney Injury Stage III KIM may be due to hypovolemia Underlying CKD unclear at this time -No NSAIDs -Continue gentle IVF with NS -Renal US done 09/23/2023 -Request [facility] Hyponatremia -Today's sodium 133 , gentle IV with NS Hypokalemia -Replete as ordered, today's potassium three-point Hypercalcemia -Hold calcium supplementation -Gently IVF with NS HTN with CKD -Chronic controlled, BUN 53, creatinine 1.96, GFR 35 -Continue to monitor -Echo ordered Anemia in chronic illness -Monitor H&H -Hemoglobin 10.4, hematocrit is 30.2 BPH HX OF Prostate Cancer Enlarged Prostate with LUTS -With the urinary symptoms of frequency, poor flow Restarted tamsulosin -Bladder US -Ex-smoker for many years. with increasing cough episodes since 07/2023 after COVID infection,SOB with mild exertion. Bilateral air entry course- Bronchodilators ordered, Pulmonology Dr. Flanagan consulte CODE STATUSfull code Diet- Cardiac, renal * DVT prophylaxis- Heparin . Discharge Plan: Home Plan to discharge in: 24 Hours - Code Status/Comfort Care Code Status Assessed: Yes (Full code) Code Status: Full Code Physician Review: Patient Assessed, Agree with Above Assessment and Plan Critical Care: No Time Spent Managing PTS Care (In Minutes): 35 (Minutes) <Laura Fragoso - Last Filed: 09/24/23 10:12> Physician Review Additional Text: 09/24/23 15:09 Pt seen and examined. I agree with the note by the CONTENT PRODUCER. Calcium level improved with IVF. PTH is 9.8 (low). Likely due to prostate cancer. renal ultrasound shows a well-circumscribed, possibly hemorrhagic, right upper renal pole 4.4 cm cystic lesion. Will dc soon 09/24/23 15:16 <Ramandeep Zapien - Last Filed: 09/24/23 15:23>
[2023-09-24 10:35] VITALS: O2SAT 97
[2023-09-24 15:03] VITALS: BP 150/77; TEMP 97.5
--- NOTE | 2023-09-24 19:13 | P.DS ---
Admission Date: 09/22/23 Discharge Date: 09/24/23 Reason for Admission: Syncope with cough and shortness of breath - Problems (1) Syncope Onset Date: ~09/23/23 Status: Acute Qualifiers: Syncope type: unspecified Qualified Code(s): R55 - Syncope and collapse (2) Acute kidney injury Onset Date: ~09/23/23 Status: Acute (3) History of malignant neoplasm of prostate Status: Chronic (4) BPH (benign prostatic hyperplasia) Status: Chronic Qualifiers: Lower urinary tract symptom presence: symptoms present (5) Depression Status: Chronic Qualifiers: Depression Type: unspecified Qualified Code(s): F32.A - Depression, unspecified (6) Atrial fibrillation Status: Chronic Qualifiers: Atrial fibrillation type: unspecified chronic Qualified Code(s): I48.20 - Chronic atrial fibrillation, unspecified; I48.2 - Chronic atrial fibrillation (7) Hyperlipidemia Status: Chronic Qualifiers: Hyperlipidemia type: moderate mixed hyperlipidemia not requiring statin therapy Qualified Code(s): E78.2 - Mixed hyperlipidemia (8) Hypertension Status: Chronic Qualifiers: Hypertension type: primary hypertension Qualified Code(s): I10 - Essential (primary) hypertension (9) Hyponatremia Status: Acute (10) Hypokalemia Status: Acute (11) Hypercalciuria Status: Acute (12) Benign hypertension with CKD (chronic kidney disease) stage III Status: Acute (13) Anemia due to stage 3 chronic kidney disease Status: Acute Brief History of Present Illness: , a 73-year-old male with a primary history of malignant neoplasm of prostrate, depression, arthritis, BPH, atrial fibrillation, hyperlipidemia, hypertension. Presented to the emergency room with the complaints of syncope. Patient reports that he had a full syncopal episode while taking a shower yesterday. Patient was seen in the [place] clinic where he was orthostatic. This dizziness happened again today. Patient reports that he was started on fluid pill recently. Patient denies chest pain, shortness of breath, abdominal pain, nausea, vomiting, bleeding. Patient reports ongoing cough and dyspnea on exertion since beginning of July 2023. Patient is ex-smoker quit smoking 2 years ago. Patient states that he had no significant trauma from the syncopal episode yesterday or today. ED course Vital signs blood pressure 172/83, pulse 73, respiration 18, temperature 98, pulse ox 97% on room air. EKG showing normal sinus rhythm CT scan of head and x-ray of the chest are normal. Laboratory reports demonstrates elevated BUN 46, creatinine 2.78, low GFR 23 which is new for this patient. Admitting the patient for syncope and acute kidney injury. Hospital Course: Mr. Cai is a pleasant 73-year-old male patient with a primary history of malignant neoplasm of prostrate, depression, arthritis, BPH, atrial fibrillation, hyperlipidemia, hypertension. who was admitted to the [facility] on 09/22/2023 for syncopal episodes. Patient was admitted treated with IV IV fluids , consulted wire stitcher operator and performance test consultant. On 09/24/2023, patient was seen on morning rounds and deemed medically stable for discharge. [text] was discharged with instructions to schedule follow-up appointments with PCP in [place] in 3 to 5 days and wire stitcher operator in 2 weeks. Patient was given the ultrasound report and and explained the report and its s ignificance to the patient patient was provided prescriptions for albuterol and Dulera. The patient and family were given the opportunity to ask questions and reported no further questions. <Laura Fragoso - Last Filed: 09/24/23 19:14> Admission Date: 09/22/23 Discharge Date: 09/25/23 Hospital Course: Pt seen and examined. I agree with the note by the NURSERY HAND. <Ramandeep Zapien - Last Filed: 09/25/23 17:29> Disposition: ROUTINE DISCHARGE Vital Signs/Physical Exam: Temp Pulse Resp BP Pulse Ox 97.5 F 76 83 H 150/77 H 99 09/24/23 12:00 09/24/23 12:00 09/24/23 12:00 09/24/23 12:00 09/24/23 12:00 General: Alert, Oriented x3 HEENT: Atraumatic, Normocephalic Neck: Supple, 2+ carotid pulse no bruit Respiratory: Clear to auscultation bilaterally, Normal air movement Cardiovascular: No edema, Normal pulses Capillary refill: <2 Seconds Gastrointestinal: Normal bowel sounds, Soft and benign Musculoskeletal: No clubbing, No swelling Neurological: Normal speech, Normal tone Laboratory Data at Discharge: WBC 7.90 thou/uL (4.3-10.9) 09/24/23 01:47 Hgb 10.4 g/dL (13.6-17.9) L D 09/24/23 01:47 Hct 30.2 % (39.6-49.0) L 09/24/23 01:47 Plt Count 165 thou/uL (152-406) 09/24/23 01:47 PT 10.7 SECONDS (9.5-12.5) 09/22/23 13:19 INR 0.97 09/22/23 13:19 APTT 27.7 SECONDS (24.3-36.9) 09/22/23 13:19 Sodium 133 mEq/L (136-145) L 09/24/23 01:47 Potassium 3.9 mEq/L (3.5-5.1) D 09/24/23 01:47 BUN 53 mg/dL (7-18) H 09/24/23 01:47 Creatinine 1.96 mg/dL (0.70-1.30) H 09/24/23 01:47 Glucose 141 mg/dL (74-106) H 09/24/23 01:47 Uric Acid 6.2 mg/dL (3.5-7.2) 09/24/23 01:47 Phosphorus 2.5 mg/dL (2.5-4.9) 09/24/23 01:47 Magnesium 2.2 mg/dL (1.6-2.4) 09/24/23 01:47 Total Bilirubin 1.0 mg/dL (0.2-1.0) 09/22/23 13:16 AST 20 U/L (15-37) 09/22/23 13:16 ALT 18 U/L (16-61) 09/22/23 13:16 Alkaline Phosphatase 81 U/L (45-117) 09/22/23 13:16 Triglycerides 81 mg/dL (<150) 09/23/23 03:32 Cholesterol 203 mg/dL (<200) H 09/23/23 03:32 HDL Cholesterol 118 mg/dL (40-60) H 09/23/23 03:32 Cholesterol/HDL Ratio 1.72 09/23/23 03:32 <Laura Fragoso - Last Filed: 09/24/23 19:14> Vital Signs/Physical Exam: Temp Pulse Resp BP Pulse Ox 97.5 F 76 83 H 150/77 H 99 09/24/23 12:00 09/24/23 12:00 09/24/23 12:00 09/24/23 12:00 09/24/23 12:00 Laboratory Data at Discharge: WBC 7.90 thou/uL (4.3-10.9) 09/24/23 01:47 Hgb 10.4 g/dL (13.6-17.9) L D 09/24/23 01:47 Hct 30.2 % (39.6-49.0) L 09/24/23 01:47 Plt Count 165 thou/uL (152-406) 09/24/23 01:47 PT 10.7 SECONDS (9.5-12.5) 09/22/23 13:19 INR 0.97 09/22/23 13:19 APTT 27.7 SECONDS (24.3-36.9) 09/22/23 13:19 Sodium 133 mEq/L (136-145) L 09/24/23 01:47 Potassium 3.9 mEq/L (3.5-5.1) D 09/24/23 01:47 BUN 53 mg/dL (7-18) H 09/24/23 01:47 Creatinine 1.96 mg/dL (0.70-1.30) H 09/24/23 01:47 Glucose 141 mg/dL (74-106) H 09/24/23 01:47 Uric Acid 6.2 mg/dL (3.5-7.2) 09/24/23 01:47 Phosphorus 2.5 mg/dL (2.5-4.9) 09/24/23 01:47 Magnesium 2.2 mg/dL (1.6-2.4) 09/24/23 01:47 Total Bilirubin 1.0 mg/dL (0.2-1.0) 09/22/23 13:16 AST 20 U/L (15-37) 09/22/23 13:16 ALT 18 U/L (16-61) 09/22/23 13:16 Alkaline Phosphatase 81 U/L (45-117) 09/22/23 13:16 Triglycerides 81 mg/dL (<150) 09/23/23 03:32 Cholesterol 203 mg/dL (<200) H 09/23/23 03:32 HDL Cholesterol 118 mg/dL (40-60) H 09/23/23 03:32 Cholesterol/HDL Ratio 1.72 09/23/23 03:32 <Ramandeep Zapien - Last Filed: 09/25/23 17:29> Diet: Regular Activity: Ad dave Physician Review: Patient Assessed, Agree with Above Assessment and Plan Time spent managing pt's care (in minutes): 55 (Minutes) <Laura Fragoso - Last Filed: 09/24/23 19:14> <Ramandeep Zapien - Last Filed: 09/25/23 17:29> Home Medications: Abiraterone Acetate 250 mg PO DAILY 09/22/23 Aspirin [Aspirin EC 325 MG] 325 mg PO DAILY 09/22/23 Calcium Citrate 200 mg PO DAILY 09/22/23 Furosemide [Lasix Oral Shanita] 40 mg PO DAILY 09/22/23 Metoprolol Tartrate [Lopressor*] 25 mg PO DAILY 09/22/23 Simvastatin 40 mg PO DAILY 09/22/23 Tamsulosin [Flomax*] 0.4 mg PO DAILY 09/22/23 methocarbamoL [Methocarbamol] 750 mg PO DAILY 09/22/23 Albuterol Inhaler [Ventolin Inhaler*] 2 puff IH Q6H PRN 30 Days #1 aer 09/24/23 Mometasone/Formoterol [Dulera 200 Mcg/5 Mcg Inhaler] 2 puff IH BID 30 Days #1 inhaler 09/24/23 New Medications: Mometasone/Formoterol [Dulera 200 Mcg/5 Mcg Inhaler] 2 puff IH BID 30 Days #1 i nhaler Albuterol Inhaler [Ventolin Inhaler*] 2 puff IH Q6H PRN 30 Days #1 aer PRN Reason: Shortness Of Breath Physician Discharge Instructions: Mr. Cai is a pleasant 73-year-old male patient with a primary history of malignant neoplasm of prostrate, depression, arthritis, BPH, atrial fibrillation, hyperlipidemia, hypertension. who was admitted to the [facility] on 09/22/2023 for syncopal episodes. Patient was admitted treated with IV IV fluids , consulted wire stitcher operator and performance test consultant. On 09/24/2023, patient was seen on morning rounds and deemed medically stable for discharge. [text] was discharged with instructions to schedule follow-up appointments with PCP in [place] in 3 to 5 days and wire stitcher operator in 2 weeks. Patient was given the ultrasound report and and explained the report and its significance to the patient patient was provided prescriptions for albuterol and Dulera. The patient and family were given the opportunity to ask questions and reported no further questions. Followup: Mark Woodruff [ACTIVE - CAN ADMIT] - OOT,OOT [Primary Care Provider] -
--- NOTE | 2023-09-24 21:15 | P.PN ---
Date of Service: 09/24/23 Vital Signs Temp Pulse Resp BP Pulse Ox 97.5 F 76 83 H 150/77 H 99 09/24/23 12:00 09/24/23 12:00 09/24/23 12:00 09/24/23 12:00 09/24/23 12:00 Assessment/ Plan: Nephrology No dyspnea No chest pain Feeling much better today No acute events overnight Vitals, medications, blood work and imaging reviewed in the chart. General: In no apparent distress, Oriented x3, Cooperative HEENT: Atraumatic Neck: Supple Respiratory: Clear to auscultation bilaterally Cardiovascular: No edema, Regular rate/rhythm Gastrointestinal: Soft and benign, Non-distended Musculoskeletal: No clubbing, No contractures Integumentary: No rashes, No cyanosis Neurological: Normal speech Blood work reviewed in the chart. Imagings Data: EXAM DESCRIPTION: Tavia Pa And Lat (2 Views)09/23/2023 2:41 pm CLINICAL HISTORY: Cough COMPARISON: 09/22/2023 FINDINGS: A vague area of sclerosis is again demonstrated right posterior 6 rib. Lungs are hyperaerated The lungs appear clear of acute infiltrate. The heart is normal size. Pacemaker leads in place IMPRESSION: COPD Vague area sclerosis right posterior sixth rib. Nuclear medicine bone scan may be helpful for further evaluation EXAM DESCRIPTION: CT - Head Brain Wo Cont - 09/22/2023 1:20 pm CLINICAL HISTORY: SYNCOPE Headache, drowsiness, syncope COMPARISON: No comparisons TECHNIQUE: All CT scans are performed using dose optimization technique as appropriate and may include automated exposure control or mA/KV adjustment according to patient size. FINDINGS: No intracranial hemorrhage, hydrocephalus or extra-axial fluid collection.Moderate generalized brain atrophy.No areas of brain edema or evidence of midline shift. The paranasal sinuses and mastoids are clear. The calvarium is intact. IMPRESSION: No acute intracranial abnormality. EXAM DESCRIPTION: RAD - Chest Single View - 09/22/2023 1:54 pm CLINICAL HISTORY: syncope Chest pain. COMPARISON: <Comparisons> FINDINGS: Portable technique limits examination quality. The lungs are grossly clear. The heart is normal in size. Multi lead pacer/defibrillator device present.There is a nonspecific area of sclerosis noted in the posterior right sixth rib. IMPRESSION: No acute intrathoracic process suspected. Nonspecific area of sclerosis seen posterior right sixth rib. The significance of this finding is unclear. Followup nuclear medicine bone scan would be advised on a nonemergent basis. [email or web address] EXAM DESCRIPTION: US - Renal Ultrasound-Complete - 09/23/2023 11:41 pm CLINICAL HISTORY: KIM COMPARISON: No comparisons TECHNIQUE: Sonographic grayscale and color flow images of the kidneys were obtained. FINDINGS: Both kidneys are normal in size, shape, and echotexture. The right kidney measures 8 cm in length. Exophytic right superior pole ovoid thin-walled cystic lesion measuring 4.0 x 4.4 x 2.9 cm, with mild debris. No hydronephrosis, other suspicious focal mass, or echogenic calculi. The left kidney measures 10.3 cm in length. No hydronephrosis, or focal mass. Two echogenic calculi are present, largest at the mid to lower pole measuring 5 millimeter, and a smaller 3 millimeter calculus at the upper pole. IMPRESSION: Well-circumscribed, possibly hemorrhagic, right upper renal pole 4.4 cm cystic lesion. Small left renal calculi up to 5 millimeter in size. No hydronephrosis or other parenchymal abnormalities. [email or web address] EXAM DESCRIPTION: US - Urinary Bladder - 09/23/2023 11:41 pm CLINICAL HISTORY: KIM with urinary retention COMPARISON: No comparisons TECHNIQUE: Real-time sonographic evaluation of the urinary bladder with pre and postvoid volume measurements was performed. FINDINGS: No focal wall masses or wall thickening. Mild trabeculation throughout the wall. Prevoid volume: 110 mL. Ureteral jets were not visualized. No bladder calculi. Postvoid bladder volume: 62.09 mL. IMPRESSION: Moderate postvoid residual. Mild trabeculation throughout the bladder wall, may relate to a degree of longstanding outlet obstruction. Conclusions/Impression: Stage III KIM may be due to hypovolemia Underlying CKD unclear at this time -No NSAIDs -Gentle IVF with NS -Renal US reviewed -[place] Possible hemorrhagic right renal cyst -Outpt follow up with a repeat ultrasound Nephrolithiasis -Maintain hydration Hyponatremia -Gentle IV with NS Hypokalemia -Replete as ordered Hypercalcemia -Hold calcium supplementation -Gentle IVF with NS HTN with CKD -Hold antihypertensives at this time Anemia in chronic illness -Monitor H&H Prostate Cancer Enlarged Prostate with LUTS Chronic urinary retention -Restart tamsulosin -Bladder US reviewed -Recommend a urology follow up Case reviewed with hospitalist team
== END 2023-09-24 17:27 | disposition home or self-care (01) | DRG 683 ==
LOC: ER 12:59 → EEVIPCON 15:02 → ERHOLD 15:02 → 2ND 09-23 02:26
PROVIDERS: ADMIT Hospitalist; ATTEND Hospitalist
DX: N17.9 Acute kidney failure, unspecified (principal); E87.1 Hypo-osmolality and hyponatremia; I48.20 Chronic atrial fibrillation, unspecified; I12.9 Hypertensive chronic kidney disease with stage 1 through stage 4 chronic kidney disease, or unspecified chronic kidney disease; N18.30 Chronic kidney disease, stage 3 unspecified; D63.1 Anemia in chronic kidney disease; D63.8 Anemia in other chronic diseases classified elsewhere; M19.90 Unspecified osteoarthritis, unspecified site; E87.6 Hypokalemia; E83.52 Hypercalcemia; E78.2 Mixed hyperlipidemia; J44.9 Chronic obstructive pulmonary disease, unspecified; N28.1 Cyst of kidney, acquired; F32.A Depression, unspecified; N40.1 Benign prostatic hyperplasia with lower urinary tract symptoms; R33.8 Other retention of urine; R55 Syncope and collapse; R82.994 Hypercalciuria; Z88.2 Allergy status to sulfonamides; Z79.82 Long term (current) use of aspirin; Z85.46 Personal history of malignant neoplasm of prostate; Z86.16 Personal history of COVID-19; Z87.891 Personal history of nicotine dependence; Z79.899 Other long term (current) drug therapy; Z95.810 Presence of automatic (implantable) cardiac defibrillator; W18.30XA Fall on same level, unspecified, initial encounter; Y99.9 Unspecified external cause status; Y93.E1 Activity, personal bathing and showering; Y92.9 Unspecified place or not applicable
CPT/HCPCS: 36415; 70450; 71045; 71046; 76770; 76857; 80048; 80061; 80076; 81003; 82306; 82330; 83735; 83880; 83970; 84100; 84439; 84443; 84484; 84550; 85025; 85610; 85730; 93005; 94640; 99285; J1644; J3535; J7030; J7512; J7613; J7644